=== PATIENT | male | born 1965 | race Caucasian/White ===

== ENCOUNTER 2016-07-21 13:51 | Outpatient (CLI) | payer BC | END 2016-07-21 13:52 | disposition home or self-care (01) | DX: G47.33 Obstructive sleep apnea (adult) (pediatric) (principal) ==

== ENCOUNTER 2016-11-08 19:33 | Outpatient (CLI) | payer BC | END 2016-11-08 19:34 | disposition home or self-care (01) | DX: G47.33 Obstructive sleep apnea (adult) (pediatric) (principal); Z68.38 Body mass index [BMI] 38.0-38.9, adult ==

== ENCOUNTER 2016-11-26 14:04 | Outpatient (CLI) | payer BC | END 2016-11-26 14:05 | disposition home or self-care (01) | LOC: SC 14:04 | PROVIDERS: ATTEND Nurse Practitioner Family | DX: G47.33 Obstructive sleep apnea (adult) (pediatric) (principal) | CPT/HCPCS: 99212; 99214 ==

== ENCOUNTER 2017-01-24 10:48 | Outpatient (CLI) | payer BC ==
[2017-01-24 11:11] LABS: BASOPHILS % (AUTO) 0.6 %; EOSINOPHILS # (AUTO) 0.1 10^3/uL (0.0-0.7); EOSINOPHILS % (AUTO) 2.8 %; HCT - HEMATOCRIT 46.9 % (42.0-52.0); HGB - HEMOGLOBIN 16.1 g/dL (14.0-18.0); LYMPHOCYTES # (AUTO) 2.1 10^3/uL (1.5-3.5); LYMPHOCYTES % (AUTO) 39.5 %; MEAN CORPUSCULAR HEMOGLOBIN 30.5 pg (27.0-31.0); MEAN CORPUSCULAR HGB CONC 34.2 g/dL (32.0-36.0); MEAN CORPUSCULAR VOLUME 89.1 fL (80.0-94.0); MEAN PLATELET VOLUME 8.3 fL (7.4-11.4); MONOCYTES # (AUTO) 0.4 10^3/uL (0.0-1.0); MONOCYTES % (AUTO) 8.2 %; NEUTROPHILS # (AUTO) 2.6 10^3/uL (1.5-6.6); NEUTROPHILS % (AUTO) 48.9 %; RED BLOOD COUNT 5.27 10^6/uL (4.70-6.10); RED CELL DISTRIBUTION WIDTH 13.7 % (12.0-15.0); UNCORRECTED WHITE BLOOD COUNT 5.3 x10^3/uL; WHITE BLOOD COUNT 5.3 x10^3/uL (4.8-10.8)
[2017-01-24 11:27] LABS: ALBUMIN/GLOBULIN RATIO 1.6 (1.0-2.2); BILIRUBIN,TOTAL 2.3 mg/dL (0.2-1.0); BUN - BLOOD UREA NITROGEN 20 mg/dL (6-20); CALCIUM 9.5 mg/dL (8.5-10.3); CARBON DIOXIDE - CO2 26 mmol/L (21-32); CHLORIDE 104 mmol/L (101-111); CHOL/HDL RATIO 5.2 (<5.0); CHOLESTEROL 173 mg/dL; GFR - MDRD 79 (>89); GLUCOSE 124 mg/dL (70-100); HDL CHOLESTEROL 33 mg/dL; HEMOGLOBIN A1C 0.85 g/dL; LDL/HDL RATIO 2.9 (<3.6); SODIUM 138 mmol/L (135-145); TRIGLYCERIDES 217 mg/dL; VLDL CHOLESTEROL 43 mg/dL
== END 2017-01-24 10:49 | disposition home or self-care (01) ==
LOC: LAB 10:48
PROVIDERS: ATTEND Physician Assistant Medical
DX: E78.5 Hyperlipidemia, unspecified (principal)
CPT/HCPCS: 36415; 80053; 80061; 83036; 85025

== ENCOUNTER 2017-01-26 15:38 | Outpatient (CLI) | payer BC | END 2017-01-26 15:39 | disposition home or self-care (01) | LOC: SC 15:38 | PROVIDERS: ATTEND Nurse Practitioner Family | DX: G47.33 Obstructive sleep apnea (adult) (pediatric) (principal) | CPT/HCPCS: 99212; 99214 ==

== ENCOUNTER 2017-05-04 15:48 | Outpatient (CLI) | payer BC | END 2017-05-04 15:49 | disposition home or self-care (01) | LOC: SC 15:48 | PROVIDERS: ATTEND Nurse Practitioner Family | DX: G47.33 Obstructive sleep apnea (adult) (pediatric) (principal) | CPT/HCPCS: 99212; 99214 ==

== ENCOUNTER 2017-06-26 09:48 | Outpatient (CLI) | payer BC ==
[2017-06-26 18:19] LABS: BASOPHILS % (AUTO) 0.4 %; EOSINOPHILS % (AUTO) 2.7 %; HGB - HEMOGLOBIN 16.5 g/dL (14.0-18.0); LYMPHOCYTES % (AUTO) 43.2 %; MEAN CORPUSCULAR HEMOGLOBIN 30.8 pg (27.0-31.0); MEAN CORPUSCULAR HGB CONC 33.5 g/dL (32.0-36.0); MEAN CORPUSCULAR VOLUME 91.9 fL (80.0-94.0); MEAN PLATELET VOLUME 8.7 fL (7.4-11.4); MONOCYTES % (AUTO) 7.4 %; NEUTROPHILS % (AUTO) 46.3 %; PLT - PLATELET COUNT 156 10^3/uL (130-450); RED BLOOD COUNT 5.35 10^6/uL (4.70-6.10); RED CELL DISTRIBUTION WIDTH 13.2 % (12.0-15.0); WHITE BLOOD COUNT 6.2 x10^3/uL (4.8-10.8)
[2017-06-26 18:26] LABS: ABNORMAL LYMPHS % (MANUAL) 0 %
[2017-06-26 18:44] LABS: HB2 TOTAL 17.8 g/dL; HEMOGLOBIN A1C 0.92 g/dL; HEMOGLOBIN A1C % 6.9 % (4.6-6.2)
[2017-06-26 18:49] LABS: ALBUMIN 4.4 g/dL (3.2-5.5); ALBUMIN/GLOBULIN RATIO 1.5 (1.0-2.2); ALKALINE PHOSPHATASE 78 IU/L (42-121); ALT ALANINE AMINOTRANSFERASE 48 IU/L (10-60); AST ASPARTATE AMINOTRANSFERASE 26 IU/L (10-42); BILIRUBIN,TOTAL 0.9 mg/dL (0.2-1.0); BUN - BLOOD UREA NITROGEN 21 mg/dL (6-20); CALCIUM 9.6 mg/dL (8.5-10.3); CARBON DIOXIDE - CO2 28 mmol/L (21-32); CHLORIDE 103 mmol/L (101-111); CHOLESTEROL 156 mg/dL; GFR - MDRD 79 (>89); GLUCOSE 137 mg/dL (70-100); HDL CHOLESTEROL 31 mg/dL; LDL CHOLESTEROL,CALCULATED 93 mg/dL; SODIUM 137 mmol/L (135-145); TOTAL PROTEIN 7.3 g/dL (6.7-8.2); VLDL CHOLESTEROL 32 mg/dL
[2017-06-26 20:33] LABS: BAND NEUTROPHILS % (MANUAL) 1 %; DIFFERENTIAL COMMENT MANUAL DIFFERENTIAL; EOSINOPHILS # (MANUAL) 0.1 10^3/uL (0-0.7); LYMPHOCYTES % (MANUAL) 41 %; MONOCYTES # (MANUAL) 0.2 10^3/uL (0.0-1.0); NEUTROPHILS # (MANUAL) 2.9 10^3/uL (1.5-6.6); NEUTROPHILS % (MANUAL) 46 %; PLATELET ESTIMATE, MANUAL NORMAL (130-450,000) (NORMAL); PLATELET MORPHOLOGY NORMAL APPEARANCE (NORMAL); RBC MORPHOLOGY (MULTIPLE) NORMAL APPEARANCE (NORMAL)
== END 2017-06-26 09:49 | disposition home or self-care (01) ==
LOC: LAB.F 09:48
PROVIDERS: ATTEND Family Medicine
DX: I10 Essential (primary) hypertension (principal); E78.5 Hyperlipidemia, unspecified; E11.9 Type 2 diabetes mellitus without complications
CPT/HCPCS: 36415; 80053; 80061; 83036; 85025

== ENCOUNTER 2017-09-21 01:08 | Emergency (ER) | payer BC ==
--- NOTE | 2017-09-21 02:56 | ED Physician Documentation ---
PD HPI HEENT - Stated complaint Stated Complaint: NOSE BLEED - Chief complaint Chief Complaint: Heent - History obtained from History obtained from: Patient - History of Present Illness Timing - onset: Today Timing - duration: Hours Timing - details: Abrupt onset, Intermittant Pain level max: 0 Pain level now: 0 Location: Nose Improves: Nothing Worsens: No: Swalllowing, Noise, Position, Temperatures, Everything Associated symptoms: Congestion. No: Fever, Rhinorrhea Similar symptoms before: Has not had sx before Recently seen: Not recently seen Review of Systems Constitutional: reports: Reviewed and negative Ears: denies: Ear pain, Drainage/discharge Nose: reports: Congestion, Epistaxis PD PAST MEDICAL HISTORY - Past Medical History Past Medical History: Yes Cardiovascular: Hypertension, High cholesterol Respiratory: Pneumonia Neuro: CVA Endocrine/Autoimmune: Type 2 diabetes GI: None : None HEENT: None Psych: None Musculoskeletal: None Derm: Psoriasis - Past Surgical History Past Surgical History: Yes - Present Medications Home Medications: Ambulatory Orders Medication Instructions Recorded Confirmed Aspirin [Aspir-Low] 81 mg PO DAILY 02/21/16 02/21/16 Atorvastatin Calcium 40 mg PO QPM 02/21/16 02/21/16 Canagliflozin [Invokana] 300 mg PO DAILY 02/21/16 02/21/16 Colchicine 0.6 mg PO TID PRN 02/21/16 02/21/16 Lisinopril 20 mg PO DAILY 02/21/16 02/21/16 - Allergies Allergies/Adverse Reactions: Allergies Allergy/AdvReac Type Severity Reaction Status Date / Time metformin AdvReac Unknown Verified 09/21/17 01:14 - Social History Does the pt smoke?: No Smoking Status: Never smoker Does the pt drink ETOH?: Yes Does the pt have substance abuse?: No - Immunizations Immunizations are current?: Yes - POLST Patient has POLST: No PD ED PE NORMAL - Vitals Vital signs reviewed: Yes - General General: Alert and oriented X 3, No acute distress, Well developed/nourished - HEENT HEENT: PERRL, EOMI, Moist mucous membranes, Pharynx benign PD ED PE EXPANDED - HEENT HEENT: Right nares epsitaxis. No: Left nares epistaxis Results - Vitals Vitals: Oxygen O2 Source Room air Procedures - Epistaxis Site: Right, Anterior Preparation: Clots removed, Afrin, Lidocaine, Clamp / pressure applied Treatment: Silver Nitrate Other: Observed - no bleeding, Pt tolerated well, O2 sat WNL, Referred to ENT PD MEDICAL DECISION MAKING - ED course Complexity details: reviewed results, re-evaluated patient, considered differential, d/w patient Departure - Departure Disposition: 01 Home, Self Care Clinical Impression: Epistaxis Condition: Good Instructions: ED Nosebleed Follow-Up: Christy Joya PA-C [Primary Care Provider] - Discharge Date/Time: 09/21/17 04:25
[2017-09-21] MEDS ORDERED: LIDOCAINE VISCOUS 2% 15 ML UDC MM STA (02:58)
[2017-09-21] MEDS ORDERED: OXYMETAZOLINE NASAL SPRAY NAS STA (02:59)
[2017-09-21 04:24] VITALS: BP 144/98
== END 2017-09-21 04:25 | disposition home or self-care (01) ==
LOC: ED 01:08
DX: R04.0 Epistaxis (principal); I10 Essential (primary) hypertension; E11.9 Type 2 diabetes mellitus without complications; Z86.73 Personal history of transient ischemic attack (TIA), and cerebral infarction without residual deficits; Z79.82 Long term (current) use of aspirin
CPT/HCPCS: 30901; 99283; A9270

== ENCOUNTER 2017-11-16 15:40 | Outpatient (CLI) | payer BC | END 2017-11-16 15:41 | disposition home or self-care (01) | LOC: SC 15:40 | PROVIDERS: ATTEND Nurse Practitioner Family | DX: G47.33 Obstructive sleep apnea (adult) (pediatric) (principal) | CPT/HCPCS: 99212; 99214 ==

== ENCOUNTER 2018-01-18 15:37 | Outpatient (CLI) | payer BC | END 2018-01-18 15:38 | disposition home or self-care (01) | LOC: SC 15:37 | PROVIDERS: ATTEND Nurse Practitioner Family | DX: G47.33 Obstructive sleep apnea (adult) (pediatric) (principal) | CPT/HCPCS: 99212; 99214 ==

== ENCOUNTER 2018-01-18 17:02 | Emergency (ER) | payer BC ==
[2018-01-18 18:52] VITALS: BP 139/78
== END 2018-01-18 19:26 | disposition left against medical advice (07) ==
LOC: ED 17:02
DX: Z53.21 Procedure and treatment not carried out due to patient leaving prior to being seen by health care provider (principal)
CPT/HCPCS: 99282

== ENCOUNTER 2018-05-08 09:16 | Outpatient (CLI) | payer BC ==
[2018-05-08 10:31] LABS: HB2 TOTAL 18.8 g/dL; HEMOGLOBIN A1C 1.16 g/dL; HEMOGLOBIN A1C % 7.8 % (4.6-6.2)
[2018-05-08 10:34] LABS: CREATININE,URINE 106.8 mg/dL
[2018-05-08 10:35] LABS: ALBUMIN 4.4 g/dL (3.2-5.5); ALBUMIN/GLOBULIN RATIO 1.6 (1.0-2.2); ALKALINE PHOSPHATASE 88 IU/L (42-121); ALT ALANINE AMINOTRANSFERASE 70 IU/L (10-60); AST ASPARTATE AMINOTRANSFERASE 34 IU/L (10-42); BILIRUBIN,TOTAL 1.9 mg/dL (0.2-1.0); BUN - BLOOD UREA NITROGEN 16 mg/dL (6-20); CALCIUM 9.2 mg/dL (8.5-10.3); CARBON DIOXIDE - CO2 24 mmol/L (21-32); CHLORIDE 106 mmol/L (101-111); CHOL/HDL RATIO 5.1 (<5.0); CHOLESTEROL 157 mg/dL; CREATININE 1.1 mg/dL (0.6-1.2); GFR - MDRD 71 (>89); GLUCOSE 153 mg/dL (70-100); HDL CHOLESTEROL 31 mg/dL; LDL CHOLESTEROL,CALCULATED 93 mg/dL; SODIUM 138 mmol/L (135-145); TOTAL PROTEIN 7.2 g/dL (6.7-8.2); VLDL CHOLESTEROL 33 mg/dL
[2018-05-08 11:02] LABS: MICROALBUMIN,URINE < 0.3 mg/dL (0-300.0)
== END 2018-05-08 09:17 | disposition home or self-care (01) ==
LOC: LAB 09:16
PROVIDERS: ATTEND Internal Medicine
DX: E11.9 Type 2 diabetes mellitus without complications (principal); E78.5 Hyperlipidemia, unspecified
CPT/HCPCS: 36415; 80053; 80061; 82043; 82570; 83036; 83721

== ENCOUNTER 2018-11-02 11:01 | Outpatient (CLI) | payer BC ==
[2018-11-02 17:36] LABS: CALCIUM 9.3 mg/dL (8.5-10.3); CREATININE 0.9 mg/dL (0.6-1.2)
[2018-11-02 17:52] LABS: HB2 TOTAL 17.1 g/dL; HEMOGLOBIN A1C 0.68 g/dL; HEMOGLOBIN A1C % 5.8 % (4.6-6.2)
== END 2018-11-02 11:02 | disposition home or self-care (01) ==
LOC: LAB.F 11:01
PROVIDERS: ATTEND Internal Medicine
DX: E11.9 Type 2 diabetes mellitus without complications (principal)
CPT/HCPCS: 36415; 80048; 82043; 83036

== ENCOUNTER 2018-12-01 18:28 | Emergency (ER) | payer BC ==
[2018-12-01 18:35] VITALS: BP 147/83
[2018-12-01] MEDS ORDERED: TETANUS/DIPHTHERIA/PERTUSSIS 0.5 ML SYRINGE IM ONE (18:59)
[2018-12-01] MEDS ORDERED: BUFFERED LIDOCAINE 10 ML SYRINGE SUBQ STA (18:59)
--- NOTE | 2018-12-01 19:01 | ED Physician Documentation ---
PD HPI UPPER EXT INJURY - Stated complaint Stated Complaint: RT FINGER LAC - Chief complaint Chief Complaint: Laceration - History obtained from History obtained from: Patient - History of Present Illness Location: Right (This is a 53-year-old gentleman who is left-handed who cut his right index finger with a knife at home just prior to arrival.) Review of Systems Constitutional: reports: Reviewed and negative Nose: reports: Reviewed and negative Throat: reports: Reviewed and negative PD PAST MEDICAL HISTORY - Past Medical History Cardiovascular: Hypertension, High cholesterol Respiratory: Pneumonia Endocrine/Autoimmune: Type 2 diabetes GI: None : None HEENT: None Psych: None Musculoskeletal: None Derm: Psoriasis - Past Surgical History Past Surgical History: Yes - Present Medications Home Medications: Ambulatory Orders Medication Instructions Recorded Confirmed Atorvastatin Calcium 40 mg PO QPM 02/21/16 02/21/16 Canagliflozin [Invokana] 300 mg PO DAILY 02/21/16 02/21/16 Lisinopril 20 mg PO DAILY 02/21/16 02/21/16 Clopidogrel [Plavix] 01/18/18 01/18/18 - Allergies Allergies/Adverse Reactions: Allergies Allergy/AdvReac Type Severity Reaction Status Date / Time metformin AdvReac Unknown Verified 01/18/18 17:12 - Social History Does the pt smoke?: No Smoking Status: Never smoker Does the pt drink ETOH?: Yes Does the pt have substance abuse?: No - Immunizations Immunizations are current?: Yes - POLST Patient has POLST: No PD ED PE NORMAL - Vitals Vital signs reviewed: Yes - General General: Alert and oriented X 3, No acute distress - Extremities Extremities: Other (On the pulp of the right index finger not involving the nailbed there is a 1 curved laceration without distal neurovascular compromise.) - Neuro Neuro: Alert and oriented X 3, Normal speech Results - Vitals Vitals: Vital Signs - 24 hr 12/01/18 18:31 Temperature 36.6 C Heart Rate 84 Respiratory 16 Rate Blood Pressure 147/83 H O2 Saturation 96 Oxygen O2 Source Room air Procedures - Laceration (location) R 2nd finger Length in cm: 1 Wound type: Linear, Curved, Superficial, Into subcut fat Neurovascular status: Sensory intact, Motor intact, Vascular intact Anesthesia: Lidocaine 1%, With bicarb Wound Preparation: Irrigated copiously NS Skin layer closure: Nylon, Interrupted, Size #-0 - enter number (5-0), Sutures - enter # (3) Other: Tetanus booster given Complexity: Simple Departure - Departure Disposition: 01 Home, Self Care Clinical Impression: Laceration Condition: Good Record reviewed to determine appropriate education?: Yes Instructions: ED Laceration Hand Comments: Come back for any signs of infection which would include: Redness, swelling, drainage, increased pain, or fevers. You can wash it soap and water. Keep it covered and moist with bacitracin ointment which is available over the counter; avoid neosporin. Follow-up with your physician in 14 days for suture removal.
== END 2018-12-01 19:28 | disposition home or self-care (01) ==
LOC: ED 18:28
DX: S61.210A Laceration without foreign body of right index finger without damage to nail, initial encounter (principal); W26.0XXA Contact with knife, initial encounter; Y93.89 Activity, other specified; Y92.009 Unspecified place in unspecified non-institutional (private) residence as the place of occurrence of the external cause; I10 Essential (primary) hypertension; E11.9 Type 2 diabetes mellitus without complications; Z79.01 Long term (current) use of anticoagulants
CPT/HCPCS: 12001; 90471; 99282; 99283

== ENCOUNTER 2019-05-21 09:24 | Outpatient (CLI) | payer BC ==
[2019-05-21 10:10] LABS: ALBUMIN 4.7 g/dL (3.2-5.5); ALBUMIN/GLOBULIN RATIO 1.8 (1.0-2.2); ALKALINE PHOSPHATASE 61 IU/L (42-121); ALT ALANINE AMINOTRANSFERASE 72 IU/L (10-60); AST ASPARTATE AMINOTRANSFERASE 37 IU/L (10-42); BILIRUBIN,TOTAL 1.8 mg/dL (0.2-1.0); BUN - BLOOD UREA NITROGEN 23 mg/dL (6-20); CALCIUM 9.3 mg/dL (8.5-10.3); CARBON DIOXIDE - CO2 26 mmol/L (21-32); CHLORIDE 105 mmol/L (101-111); CHOL/HDL RATIO 5.4 (<5.0); CHOLESTEROL 184 mg/dL; CREATININE 1.1 mg/dL (0.6-1.2); GFR - MDRD 70 (>89); GLUCOSE 128 mg/dL (70-100); HDL CHOLESTEROL 34 mg/dL; LDL CHOLESTEROL,CALCULATED 102 mg/dL; SODIUM 141 mmol/L (135-145); TOTAL PROTEIN 7.3 g/dL (6.7-8.2); VLDL CHOLESTEROL 48 mg/dL
[2019-05-21 10:18] LABS: HB2 TOTAL 17.6 g/dL; HEMOGLOBIN A1C 1.11 g/dL; HEMOGLOBIN A1C % 7.9 % (4.6-6.2)
== END 2019-05-21 09:25 | disposition home or self-care (01) ==
LOC: LAB 09:24
PROVIDERS: ATTEND Internal Medicine
DX: E78.5 Hyperlipidemia, unspecified (principal); E11.9 Type 2 diabetes mellitus without complications
CPT/HCPCS: 36415; 80053; 80061; 83036; 83721

== ENCOUNTER 2019-08-15 15:59 | Outpatient (CLI) | payer BC ==
[2019-08-15 17:00] VITALS: BP 120/80
--- NOTE | 2019-08-15 17:00 | SLEEP CARE CONSULTATION ---
Information from patient questionnaire entered by Hawa Boston. I have reviewed and concur with the information entered by Hawa Boston. This document represents the service I personally performed and the decisions made by me, Barbra Lee, RN, MSN, BITE [employer]. History of Present Illness Previous diagnosis: Very Severe, Obstructive Sleep Apnea-Hypopnea Syndrome AHI: 61.5 Reason for follow up: three month (and pressure change) Equipment type: CPAP Equipment obtained from: [facility] (having problems getting supplies despite repeated attempts) Mask style: Nasal (Air Fit) Mask brand: Resmed Backup mask available: Yes Last cushion change: 2 months ago Prior sleep studies: Yes HPI additional information: The lower CPAP pressure and adjustment of heated hose assisted comfort of CPAP use. CPAP Compliance Data - Data Reviewed with Patient Average duration of nightly device use: 5h 8m Compliance rate %: 87.8 Current pressure setting (cmH2O): 12 Humidity settin Heated hose settin Average residual AHI: 0.6 Average large leak: 22s Subjective Missed days of use due to: reports: illness (with cold ), other (power outage ) Patient concerns: reports: mask leak noise (rarely ). denies: aerophagia, mask discomfort, air blowing in eyes, condensation in mask/hose, nasal congestion, dry mouth, nose, throat, epistaxis Observed to snore while using device: No Current pressure setting perceived as: comfortable On therapy, patient: reports: sleeping better, awakening more refreshed, being more awake and alert during the day, more rested overall. denies: drowsiness while driving Initial [place] Sleepiness Scale score: 10 Current [place] Sleepiness Scale score: 7 Allergies and Home Medications Known drug allergies: Yes (metformin ) Home medication list reviewed: Yes Allergy and home medication list: Medication Name (generic/name brand) Strength & Dosage Invokana 300mg tab one daily Lisinopril 40mg tab one daily Clopidogrel Bisulfate (Plavix) 75mg tab one daily Atorvastatin Calcium 80mg tab one daily at bedtime Review of Systems Review of systems same as previous: Yes Physical Exam Blood Pressure: 120/80 Cuff size: long Heart Rate: 71 O2 Saturation: 98 Height: 5 ft 9 in Weight: 256 lb Weight change since last visit: lost 2.4 pounds Body Mass Index: 37.8 BMI Classification: Obese Impression and Plan 1. Obstructive Sleep Apnea-Hypopnea Syndrome, very severe, with good treatment compliance and good apnea control. On CPAP therapy, the patient has better sleep quality and is more rested overall with lower pressure and higher humidity. For patient supply concerns. Patient was notified that another DME can be used. At this time, he will work with current DME. Patient advised to contact this office if further supply problems and a DWO can be made if needed for transfers. Questions about supplies and replacement were answered again. In addition, I gave patient a copy of the CPAP supply replacement schedule and discussed rationale for updating equipment. He is advised to increase total sleep time to at least 6 hours to reduce risk of health risks associated with insufficient sleep. Patient's apnea severity and rationale for treatment to reduce apnea, improve sleep quality and reduce cardiovascular and cerebrovascular events was reviewed. I also reviewed the benefit of consistent device use of CPAP for hypertension and cerebrascular disease. * Continue CPAP pressure at 10-12 cmH2O * obtain more sleep * Notify me if snoring with mask or feeling that the pressure is too much or too little * Attempt to lose weight * Call this office if any problems using CPAP * Return for follow up in 1 year , or sooner if concerns arise . Time Spent with Patient (minutes): 22 I spent 100% of this visit face to face with the patient with greater than 50% of this was spent time counseling the patient and coordination of care.
== END 2019-08-15 16:00 | disposition home or self-care (01) ==
LOC: SC 15:59
PROVIDERS: ATTEND Nurse Practitioner Family
DX: G47.33 Obstructive sleep apnea (adult) (pediatric) (principal); E66.9 Obesity, unspecified; Z68.37 Body mass index [BMI] 37.0-37.9, adult
CPT/HCPCS: 99212; 99213

== ENCOUNTER 2020-10-02 07:25 | Day surgery (SDC) | payer BC ==
[2020-10-02] MEDS ORDERED: LACTATED RINGERS 1,000 ML IV ONE ×2 (07:27→09:14)
--- NOTE | 2020-10-02 08:06 | ANESTHESIA ---
Pre-Anesthesia VS, & Labs - Diagnosis Family history of colon cancer, high risk for colon cancer - Procedure colonoscopy Height: 5 ft 9 in Weight (kg): 112.4 kg Body Mass Index: 36.6 BMI Classification: Obese - NPO >8 hours - Lab Results Current Lab Results: Laboratory Tests 10/02/20 07:45: POC Whole Bld Glucose 142 H Home Medications and Allergies Atorvastatin Calcium 40 mg PO QPM 02/21/16 Canagliflozin [Invokana] 300 mg PO DAILY 02/21/16 Lisinopril 20 mg PO DAILY 02/21/16 Clopidogrel [Plavix] 1 tab ORAL DAILY 01/18/18 Allergies/Adverse Reactions: Allergies Allergy/AdvReac Type Severity Reaction Status Date / Time metformin AdvReac Unknown Verified 01/18/18 17:12 Anes History & Medical History - Anesthetic History Anesthesia Complications: reports: No previous complications - Medical History Cardiovascular: reports: Hypertension, High cholesterol Pulmonary: reports: Sleep apnea, CPAP use Gastrointestinal: reports: None Urinary: reports: None Neuro: reports: CVA Musculoskeletal: reports: None Endocrine/Autoimmune: reports: Type 2 diabetes Blood Disorders: reports: None Skin: reports: Psoriasis Smoking Status: Former smoker (Quit 10 years ago) Psychosocial: reports: No issues indicated, Alcohol (2-3 drinks per night) History of Cancer?: No - Surgical History General: reports: Colonoscopy Eyes Ears Nose Throat (EENT): reports: Tonsil/Adenoidectomy Orthopedic: reports: Other (right wrist) Exam General: Alert, Oriented x3, Cooperative, No acute distress Dental: WNL Mouth Openin Fingerbreadth Neck Mobility: Normal Mallampati classification: II Thyromental Distance: greater than 6 cm Mental/Cognitive Status: Alert/Oriented X3, Normal for patient Plan Anesthesia Type: MAC Consent for Procedure(s) Verified and Reviewed: Yes Code Status: Attempt Resuscitation ASA classification: 3-Severe systemic disease Is this case an emergency?: No
[2020-10-02] MEDS ORDERED: PROPOFOL 500 MG/50 ML 500 MG/50 ML VIAL ONE (08:16)
[2020-10-02] MEDS ORDERED: MIDAZOLAM 2 MG/2 ML VIAL ONE (08:34)
[2020-10-02] MEDS ORDERED: fentaNYL 100 MCG/2 ML VIAL ONE (08:34)
[2020-10-02 09:28] VITALS: BP 117/88
--- NOTE | 2020-10-02 09:56 | ANESTHESIA POST OP EVALUATION ---
Anesthesia Post Eval - Post Anesthesia Eval Vitals: Last Vital Signs Temp 36.2 C L 10/02/20 09:14 Pulse 64 10/02/20 09:28 Resp 17 10/02/20 09:28 BP 117/88 H 10/02/20 09:28 Pulse Ox 98 10/02/20 09:28 CV Function Including HR & BP: Stable Pain Control: Satisfactory Nausea & Vomiting: Negative Mental Status: Baseline Respiratory Status: Airway Patent Hydration Status: Satisfactory Anesthesia Complications: None
--- OUTSIDE RECORDS SUMMARY | 2020-10-03 03:19 | EXTERNAL MEDICAL SUMMARY RPT | Continuity of Care Document ---
:1965 Demographics Phone Unavailable Preferred Language Unknown Marital Status Unknown Sabianism Affiliation Unknown Race Unknown Ethnic Group Unknown Author Organization [place] Address [address] [phone] Phone Care Team Providers Name Role Phone PA-C Unavailable Unavailable PA-C Unavailable Unavailable Problems date description facility 20200815 CBC W/Diff/Plt [facility] C barbie [id number] Details of drug misuse behavior [facility] 20200815 Encounter for screening for malignant [facility] & neoplasm of colon [facility] 20200815 HGBA1C [facility] 20200815 Little interest or pleasure in doing W alk[facility] & things? Ancillary Services [facility] valentin 20200815 MICROALBUMIN/CREAT RATIO [facility] Services [facility] valentin 20200815 Alcohol use [facility] 20200815 COMPREHENSIVE METABOLIC PANEL [facility] 20200815 Feeling down, depressed, or hopeless? [facility] 20200815 Former smoker [facility] 20200815 LIPIDS SCREEN [facility] 20200815 Patient Health Questionnaire 2 item [facility] & (PHQ2) total score Ancillary Services [facility] avlentin [id number] Screening for malignant neoplasm of [facility] & colon [facility] val[facility] 20200815 Screening for malignant neoplasms of [facility] & colon [facility] val[facility] 20200815 TSH WITH REFLEX TO FT4 [facility] 20200824 Alcohol intake [facility] 20200824 Alcohol use [facility] 20200824 Details of drug misuse behavior [facility] 20200824 Exercise [facility] valentin 20200824 Former smoker [facility] Care & Ancillary Services [facility] 20200824 Health-related behavior Walk[facility]In [facility] Primary Care & Ancillary Services [facility] 20200824 Tobacco smoking status NHIS Walk[facility]In [facility] Primary Care & Ancillary Services [facility] 20200824 Tobacco use and exposure [facility] [phone] Alcohol intake [facility] [id number] Alcohol use [facility] Care & Anc[facility] Services [facility] [phone] Details of drug misuse behavior [facility] Primary Care & Ancillary Services [facility] [id number] Former smoker [facility] Care & Ancillary Services [facility] [id number] Tobacco smoking status NHIS [facility] Primary Care & Ancillary Services [facility] [id number] Tobacco use and exposure [facility] Medications date description facility [id number] BLOOD GLUCOSE MONITORING SUPPL Walk[facility] Primary Care & Ancillary Services [place] [id number] BLOOD GLUCOSE MONITORING SUPPL Walk-[facility] Primary Care & Ancillary Services [place] 20200824 NA SULFATE-K SULFATE-MG SULF Walk-In [facility] Primary Care & Ancillary Services [place] [phone] NA SULFATE-K SULFATE-MG SULF Walk[facility] Primary Care & Ancillary Services [place] Vital Signs date measurement value source [id number] BMI 37.14 kg/m2 95602135 BP_diastolic 77 mm[Hg] 86722598 BP_systolic 124 mm[Hg] 68094194 heart_rate 78 /min 30721890 height_metric 175.26 cm 34884783 height_standard 69 in 95986625 respiration_rate 16 /min 53133580 temperature_metric 36.28 C 80593935 temperature_standard 97.3 F [id number] weight_metric 114.08 kg 39875001 weight_standard 251.5 lb 29800358 heart_rate 78 /min 94762020 respiration_rate 16 /min 41875312 temperature_metric 36.28 C 18462698 temperature_standard 97.3 F date measurement value source 20200824 BMI 37.05 kg/m2 86611297 BP_diastolic 93 mm[Hg] 59822508 BP_systolic 138 mm[Hg] 20200824 height_metric 175.26 cm 20200824 height_standard 69 in 20200824 weight_metric 113.4 kg 20200824 weight_standard 250 lb Social History date description facility [id number]
== END 2020-10-02 07:26 | disposition home or self-care (01) ==
LOC: SDS 07:25
PROVIDERS: ATTEND Surgery
PROC: 0DBL8ZZ Excision of Transverse Colon, Via Natural or Artificial Opening Endoscopic (ICD-10-PCS; 2020-10-02)
PROC: 0DBK8ZZ Excision of Ascending Colon, Via Natural or Artificial Opening Endoscopic (ICD-10-PCS; principal; 2020-10-02 08:30)
DX: Z12.11 Encounter for screening for malignant neoplasm of colon (principal); D12.2 Benign neoplasm of ascending colon; D12.3 Benign neoplasm of transverse colon; K64.8 Other hemorrhoids; K57.30 Diverticulosis of large intestine without perforation or abscess without bleeding; I10 Essential (primary) hypertension; E11.9 Type 2 diabetes mellitus without complications; G47.33 Obstructive sleep apnea (adult) (pediatric); Z79.84 Long term (current) use of oral hypoglycemic drugs; I67.9 Cerebrovascular disease, unspecified; Z79.02 Long term (current) use of antithrombotics/antiplatelets; Z86.73 Personal history of transient ischemic attack (TIA), and cerebral infarction without residual deficits; Z87.891 Personal history of nicotine dependence; Z80.0 Family history of malignant neoplasm of digestive organs; E66.9 Obesity, unspecified; Z68.36 Body mass index [BMI] 36.0-36.9, adult
CPT/HCPCS: 45385; J7120; 88305

== ENCOUNTER 2020-10-09 07:24 | Emergency (ER) | payer BC ==
--- OUTSIDE RECORDS SUMMARY | 2020-10-09 07:27 | EXTERNAL MEDICAL SUMMARY RPT | Continuity of Care Document ---
:1965 Demographics Phone Unavailable Preferred Language Unknown Marital Status Unknown Moravian Affiliation Unknown Race Unknown Ethnic Group Unknown Author Organization [place] Address [address] [phone] Phone Care Team Providers Name Role Phone [...] & (PHQ2) total score Ancillary Services [facility] valentin [phone] Screening for malignant neoplasm of Wa lk-In [...] [facility] valentin 20200824 Former smoker [facility] Care & Ancillary Services [facility] 20200824 Health-related behavior Walk[facility]In [facility] Primary Care & Ancillary Services [facility] 20200824 Tobacco smoking status NHIS Walk[facility]In [facility] Primary Care & Ancillary Services [facility] 20200824 Tobacco use and exposure [facility] Services [facility] [id number] Alcohol intake [facility] [phone] Alcohol use [facility] Care & Ancillary Services [facility] [id number] Details of drug misuse behavior Walk[facility] Primary Care & Ancillary Services [facility] [phone] Former smoker [facility] Care & Ancillary Services [facility] [phone] Tobacco smoking status NHIS Walk[facility] Primary Care & Ancillary Services [facility] [id number] Tobacco use and exposure [facility] Primary Care & Ancillary Services [facility] Medications date description facility [id number] BLOOD GLUCOSE MONITORING SUPPL Walk[facility]In [facility] Primary Care & Ancillary Services [place] [id number] BLOOD GLUCOSE MONITORING SUPPL Walk-In [facility] Primary Care & [facility] Services [place] 20200824 NA SULFATE-K SULFATE-MG SULF Walk-In [facility] Primary Care & Ancillary Services [place] [phone] NA SULFATE-K SULFATE-MG SULF Walk[facility]In [facility] Primary Care & Ancillary Services [place] Vital Signs date measurement value source [id number] BMI 37.14 kg/m2 83014420 BP_diastolic 77 mm[Hg] 28806256 BP_systolic 124 mm[Hg] 03479095 heart_rate 78 /min 95972393 height_metric 175.26 cm 45969153 height_standard 69 in 29875048 respiration_rate 16 /min 66039255 temperature_metric 36.28 C 36716727 temperature_standard 97.3 F 42524404 weight_metric 114.08 kg 51425340 weight_standard 251.5 lb 04465764 heart_rate 78 /min 01560761 respiration_rate 16 /min 55206913 temperature_metric 36.28 C 79360800 temperature_standard 97.3 F date measurement value source 20200824 BMI 37.05 kg/m2 31864266 BP_diastolic 93 mm[Hg] 17238929 BP_systolic 138 mm[Hg] 20200824 height_metric 175.26 cm 20200824 height_standard 69 in 20200824 weight_metric 113.4 kg 20200824 weight_standard 250 lb Social History date description facility [id number]
--- NOTE | 2020-10-09 07:37 | ED Physician Documentation ---
PD HPI GI BLEED - Stated complaint Stated Complaint: BLOOD IN STOOL - Chief complaint Chief Complaint: Abd Pain - History obtained from History obtained from: Patient - History of Present Illness Timing - onset: Today, Last night Timing - details: Gradual onset (onset of some lower abd cramping pains and dark blood with clots out per rectum. An episode last evening, and felt he was going to call surgeon today, but had 4-5 more BMs of dark clots overnight, so here for eval.), Intermittant Associated symptoms: Maroon stool (with clots.) Contributing factors: Anticoagulated (plavix.), Other (colonscopy wtih biopsies 6 days ago.). No: Bad food, Recent antibiotics, NSAID use Similar symptoms before: Has not had sx before Recently seen: Surgery (had screening colonscopy 6 days ago without problems.) Review of Systems Constitutional: denies: Fever, Chills Nose: denies: Rhinorrhea / runny nose, Congestion Throat: denies: Sore throat Respiratory: denies: Cough GI: reports: Abdominal Pain (cramping lower), Bloody / black stool. denies: Abdominal Swelling, Nausea, Vomiting Neurologic: denies: Generalized weakness, Difficulty speaking, Near syncope PD PAST MEDICAL HISTORY - Past Medical History Cardiovascular: Hypertension, High cholesterol Respiratory: Sleep apnea, CPAP use Neuro: CVA Endocrine/Autoimmune: Type 2 diabetes GI: None : None HEENT: None Psych: None Musculoskeletal: None Derm: Psoriasis - Past Surgical History Past Surgical History: Yes General: Colonoscopy Ortho: Other (right wrist) HEENT: Tonsil/Adenoidectomy - Present Medications Home Medications: Ambulatory Orders Medication Instructions Recorded Confirmed Atorvastatin Calcium 80 mg PO QPM 02/21/16 10/09/20 Canagliflozin [Invokana] 300 mg PO DAILY 02/21/16 10/09/20 Lisinopril 40 mg PO DAILY 02/21/16 10/09/20 Clopidogrel [Plavix] 75 mg ORAL DAILY 01/18/18 10/09/20 - Allergies Allergies/Adverse Reactions: Allergies Allergy/AdvReac Type Severity Reaction Status Date / Time metformin AdvReac Unknown Verified 10/09/20 07:32 - Social History Does the pt smoke?: No Smoking Status: Former smoker (Quit 10 years ago) Does the pt drink ETOH?: Yes Does the pt have substance abuse?: No - Immunizations Immunizations are current?: Yes - POLST Patient has POLST: No PD ED PE NORMAL - Vitals Vital signs reviewed: Yes - General General: Alert and oriented X 3, No acute distress, Well developed/nourished - HEENT HEENT: Pharynx benign - Neck Neck: Supple, no meningeal sign, No adenopathy - Cardiac Cardiac: RRR, No murmur - Respiratory Respiratory: Clear bilaterally - Abdomen Abdomen: Normal bowel sounds, Soft, Non tender, Non distended - Rectal Rectal: Deferred (he had small BM in ER of purple clots without stool. ) - Derm Derm: Normal color, Warm and dry - Extremities Extremities: No edema, No calf tenderness / cord Results - Vitals Vitals: Vital Signs - 24 hr 10/09/20 10/09/20 10/09/20 07:32 07:53 10:02 Temperature 36 C L 36.7 C Heart Rate 79 70 66 Respiratory 18 16 16 Rate Blood Pressure 163/95 H 122/102 H 133/84 H O2 Saturation 97 96 96 Oxygen O2 Source Room air - Labs Labs: Laboratory Tests 10/09/20 10/09/20 10/09/20 08:10 08:10 08:10 WBC 5.0 RBC 4.83 Hgb 15.2 Hct 44.1 MCV 91.3 MCH 31.5 H MCHC 34.5 RDW 12.6 Plt Count 146 MPV 9.9 Neut # (Auto) 2.7 Lymph # (Auto) 1.8 Wake # (Auto) 0.4 Eos # (Auto) 0.2 Baso # (Auto) 0.0 Absolute Nucleated RBC 0.00 Nucleated RBC % 0.0 PT 11.7 INR 1.0 APTT 32.4 Sodium 137 Potassium 3.9 Chloride 103 Carbon Dioxide 25 Anion Gap 9.0 BUN 23 H Creatinine 0.9 Estimated GFR (MDRD) 88 L Glucose 168 H Calcium 9.5 Total Bilirubin 1.0 AST 20 ALT 37 Alkaline Phosphatase 75 Total Protein 7.1 Albumin 4.2 Globulin 2.9 Albumin/Globulin Ratio 1.4 Lipase 29 Blood Type Blood Type Recheck Antibody Screen 10/09/20 10/09/20 08:10 08:30 WBC RBC Hgb Hct MCV MCH MCHC RDW Plt Count MPV Neut # (Auto) Lymph # (Auto) Wake # (Auto) Eos # (Auto) Baso # (Auto) Absolute Nucleated RBC Nucleated RBC % PT INR APTT Sodium Potassium Chloride Carbon Dioxide Anion Gap BUN Creatinine Estimated GFR (MDRD) Glucose Calcium Total Bilirubin AST ALT Alkaline Phosphatase Total Protein Albumin Globulin Albumin/Globulin Ratio Lipase Blood Type O POSITIVE Blood Type Recheck O POSITIVE Antibody Screen NEGATIVE PD MEDICAL DECISION MAKING - ED course Complexity details: reviewed results (blood count and vitals are good. Seems stable and also seems the amount of bleeding has slowed.), re-evaluated patient (feeling okay and he is comfortable heading home, to follow up with Surgery office tomorrow. Clinically is not concerning for perforation during scope.), considered differential (likely falling off of wet clot from biopsy site, and having the noted bleeding. Presume it will stop through the day today, but has buffer room with regard to Hgb and BP. ), d/w patient, d/w solar consultant (Dr. Gamez, composition instructor for surgery, who felt pt stable for close follow up in office in next 1-2 days. ) Departure - Departure Disposition: 01 Home, Self Care Clinical Impression: Hematochezia, Status post colonoscopy with polypectomy Condition: Stable Record reviewed to determine appropriate education?: Yes Instructions: ED Hematochezia Stable Follow-Up: Milton Resendiz MD [Primary Care Provider] - Comments: Hydrated. Clear liquids and soft food diet for 1 to 2 days until this resolves. This is in case you would subsequently need a repeat scope. Hold your Plavix for 3 days. Return if worsening/significant bleeding, increased pains, lightheadedness, other concerns. Otherwise contact the surgery office tomorrow to update them on how you are doing and the degree of bleeding. Most likely this will be resolved by later today or tomorrow. This most likely was a clot at the polyp ectomy site coming loose with brief self-limited bleeding most of the time. Discharge Date/Time: 10/09/20 10:03
--- OUTSIDE RECORDS SUMMARY | 2020-10-09 07:46 | EXTERNAL MEDICAL SUMMARY RPT | Continuity of Care Document ---
:1965 Demographics Phone Unavailable Preferred Language Unknown Marital Status Unknown Adventism Affiliation Unknown Race Unknown Ethnic Group Unknown Author Organization [facility] Address [address] [phone] Phone Care Team Providers Name Role Phone Shemar BRAND, Unavailable Unavailable SUNDAY, Elisha Ayon, Unavailable Unavailable Problems date description facility [id number] [...] [facility] C barbie [id number] Feeling down, depressed, or hopeless? [facility] Chiara valentin [id number] Former smoker [facility] Chiara valentin [id number] LIPIDS SCREEN [facility] Services Chiara valentin [id number] Patient Health Questionnaire 2 item [facility] & (PHQ2) total score Ancillary Services Chiara valentin [id number] Screening for malignant neoplasm of [facility] colon [facility] Services Chiara valentin [id number] Screening for malignant neoplasms of [facility] & colon Ancillary Services Chiara valentin 20200815 TSH WITH REFLEX TO FT4 [facility] Chiara valentin 20200824 Alcohol intake [facility] C barbie 20200824 Alcohol use [facility] Chiara valentin 20200824 Details of drug misuse behavior [facility] Chiara valentin 20200824 Exercise [facility] & Anc[facility] Services [facility] 20200824 Former smoker [facility] Care & Ancillary Services [facility] 20200824 Health-related behavior [facility] Primary Care & Ancillary Services [facility] 20200824 Tobacco smoking status NHIS [facility] Primary Care & Ancillary Services [facility] 20200824 Tobacco use and exposure [facility] [id number] Alcohol intake [facility] Care & Ancillary Services [facility] [id number] Alcohol use [facility] Care & Ancillary Services [facility] [phone] Details of drug misuse behavior [facility] Primary Care & Ancillary Services [facility] [phone] Former smoker [facility] & Ancillary Services [facility] [id number] Tobacco smoking status [facility]In [facility] Primary Care & Ancillary Services [facility] [phone] Tobacco use and exposure [facility] Primary Care & Ancillary Services [facility] Medications date description facility [id number] BLOOD GLUCOSE MONITORING SUPPL [facility] Primary Care & Ancillary Services [place] [id number] BLOOD GLUCOSE MONITORING SUPPL Walk-In [facility] Primary Care & Ancillary Services [place] [phone] NA SULFATE-K SULFATE-MG SULF Walk-In [facility] Primary Care & Ancillary Services [place] [phone] NA SULFATE-K SULFATE-MG SULF [facility] Primary Care & Ancillary Services [place] Vital Signs date measurement value source 20200815 BMI 37.14 kg/m2 [id number] BP_diastolic 77 mm[Hg] 45492213 BP_systolic 124 mm[Hg] 88941513 heart_rate 78 /min 32491624 height_metric 175.26 cm 31670609 height_standard 69 in 08386638 respiration_rate 16 /min [id number] temperature_metric 36.28 C 02808892 temperature_standard 97.3 F 20200815 weight_metric 114.08 kg 19266815 weight_standard 251.5 lb 58332212 heart_rate 78 /min 74240613 respiration_rate 16 /min 15988231 temperature_metric 36.28 C 63310959 temperature_standard 97.3 F date measurement value source 20200824 BMI 37.05 kg/m2 18405350 BP_diastolic 93 mm[Hg] 16421789 BP_systolic 138 mm[Hg] 20200824 height_metric 175.26 cm 20200824 height_standard 69 in 20200824 weight_metric 113.4 kg 20200824 weight_standard 250 lb Social History date description facility [id number]
[2020-10-09] MEDS ORDERED: FAMOTIDINE 20 MG/2 ML VIAL IVP STA (08:08)
[2020-10-09 08:19] LABS: BASOPHILS % (AUTO) 0.6 %; EOSINOPHILS # (AUTO) 0.2 10^3/uL (0.0-0.7); EOSINOPHILS % (AUTO) 3.2 %; HCT - HEMATOCRIT 44.1 % (42.0-52.0); HGB - HEMOGLOBIN 15.2 g/dL (14.0-18.0); LYMPHOCYTES # (AUTO) 1.8 10^3/uL (1.5-3.5); MEAN CORPUSCULAR HEMOGLOBIN 31.5 pg (27.0-31.0); MEAN CORPUSCULAR HGB CONC 34.5 g/dL (32.0-36.0); MEAN CORPUSCULAR VOLUME 91.3 fL (80.0-94.0); MEAN PLATELET VOLUME 9.9 fL (7.4-11.4); MONOCYTES # (AUTO) 0.4 10^3/uL (0.0-1.0); MONOCYTES % (AUTO) 7.4 %; NEUTROPHILS # (AUTO) 2.7 10^3/uL (1.5-6.6); NEUTROPHILS % (AUTO) 53.6 %; PLT - PLATELET COUNT 146 10^3/uL (130-450); RED BLOOD COUNT 4.83 10^6/uL (4.70-6.10); RED CELL DISTRIBUTION WIDTH 12.6 % (12.0-15.0)
[2020-10-09 08:27] LABS: PT - PROTHROMBIN TIME 11.7 secs (9.9-12.6)
[2020-10-09 08:34] LABS: ALBUMIN 4.2 g/dL (3.2-5.5); ALBUMIN/GLOBULIN RATIO 1.4 (1.0-2.2); CALCIUM 9.5 mg/dL (8.5-10.3); CREATININE 0.9 mg/dL (0.6-1.2); POTASSIUM 3.9 mmol/L (3.5-5.0); TOTAL PROTEIN 7.1 g/dL (6.7-8.2)
[2020-10-09 08:35] LABS: PARTIAL THROMBOPLASTIN TIME 32.4 secs (24.9-33.3)
[2020-10-09 10:03] VITALS: BP 133/84
== END 2020-10-09 10:03 | disposition home or self-care (01) ==
LOC: ED 07:24
DX: K92.1 Melena (principal); Z98.890 Other specified postprocedural states; Z86.010 Personal history of colon polyps; Z79.02 Long term (current) use of antithrombotics/antiplatelets; Z86.73 Personal history of transient ischemic attack (TIA), and cerebral infarction without residual deficits; I10 Essential (primary) hypertension; E11.9 Type 2 diabetes mellitus without complications; Z79.84 Long term (current) use of oral hypoglycemic drugs; Z87.891 Personal history of nicotine dependence
CPT/HCPCS: 36415; 80053; 83690; 85025; 85610; 85730; 86850; 86900; 86901; 96374; 99284

== ENCOUNTER 2020-10-20 09:21 | Outpatient (CLI) | payer BC ==
[2020-10-20 15:42] LABS: BASOPHILS % (AUTO) 0.6 %; EOSINOPHILS # (AUTO) 0.2 10^3/uL (0.0-0.7); EOSINOPHILS % (AUTO) 3.8 %; HCT - HEMATOCRIT 44.1 % (42.0-52.0); HGB - HEMOGLOBIN 14.8 g/dL (14.0-18.0); LYMPHOCYTES % (AUTO) 42.5 %; MEAN CORPUSCULAR HEMOGLOBIN 31.6 pg (27.0-31.0); MEAN CORPUSCULAR HGB CONC 33.6 g/dL (32.0-36.0); MEAN PLATELET VOLUME 9.9 fL (7.4-11.4); MONOCYTES # (AUTO) 0.4 10^3/uL (0.0-1.0); MONOCYTES % (AUTO) 8.7 %; NEUTROPHILS # (AUTO) 2.1 10^3/uL (1.5-6.6); NEUTROPHILS % (AUTO) 44.2 %; PLT - PLATELET COUNT 194 10^3/uL (130-450); RED BLOOD COUNT 4.69 10^6/uL (4.70-6.10); RED CELL DISTRIBUTION WIDTH 13.4 % (12.0-15.0); WHITE BLOOD COUNT 4.7 x10^3/uL (4.8-10.8)
[2020-10-20 16:04] LABS: ALBUMIN 4.1 g/dL (3.2-5.5); ALBUMIN/GLOBULIN RATIO 1.4 (1.0-2.2); ALKALINE PHOSPHATASE 74 IU/L (42-121); ALT ALANINE AMINOTRANSFERASE 36 IU/L (10-60); AST ASPARTATE AMINOTRANSFERASE 24 IU/L (10-42); BILIRUBIN,TOTAL 1.5 mg/dL (0.2-1.0); BUN - BLOOD UREA NITROGEN 17 mg/dL (6-20); CALCIUM 9.3 mg/dL (8.5-10.3); CARBON DIOXIDE - CO2 26 mmol/L (21-32); CHLORIDE 103 mmol/L (101-111); CHOL/HDL RATIO 5.3 (<5.0); CHOLESTEROL 159 mg/dL; CREATININE 0.9 mg/dL (0.6-1.2); GFR - MDRD 88 (>89); GLUCOSE 159 mg/dL (70-100); HDL CHOLESTEROL 30 mg/dL; LDL CHOLESTEROL,CALCULATED 103 mg/dL; LDL/HDL RATIO 3.4 (<3.6); POTASSIUM 3.9 mmol/L (3.5-5.0); SODIUM 138 mmol/L (135-145); TOTAL PROTEIN 7.1 g/dL (6.7-8.2); TRIGLYCERIDES 132 mg/dL; VLDL CHOLESTEROL 26 mg/dL
[2020-10-20 16:14] LABS: CREATININE,URINE 90.7 mg/dL
[2020-10-20 16:16] LABS: THYROID STIMULATING HORMONE 2.16 uIU/mL (0.34-5.60)
[2020-10-20 16:25] LABS: MICROALBUMIN,URINE < 0.2 mg/dL (0-300.0)
[2020-10-20 21:42] LABS: ESTIMATED AVERAGE GLUCOSE 177 mg/dL (70-100); HEMOGLOBIN A1c% 7.8 % (4.27-6.07)
== END 2020-10-20 09:22 | disposition home or self-care (01) ==
LOC: LAB.S 09:21
PROVIDERS: ATTEND Surgery
DX: Z00.00 Encounter for general adult medical examination without abnormal findings (principal); E11.9 Type 2 diabetes mellitus without complications; K92.1 Melena; I10 Essential (primary) hypertension; E78.5 Hyperlipidemia, unspecified; G47.33 Obstructive sleep apnea (adult) (pediatric)
CPT/HCPCS: 36415; 80053; 80061; 82043; 82570; 83036; 83721; 84443; 85025

== ENCOUNTER 2021-01-08 08:00 | Outpatient (CLI) | payer BC | END 2021-01-08 08:01 | disposition home or self-care (01) | LOC: LAB.S 08:00 | PROVIDERS: ATTEND Emergency Medicine | DX: L03.90 Cellulitis, unspecified (principal) | CPT/HCPCS: 87070; 87077; 87181; 87205 ==

== ENCOUNTER 2021-01-18 14:50 | Outpatient (CLI) | payer BC ==
[2021-01-18 20:16] LABS: CALCIUM 9.8 mg/dL (8.5-10.3); CREATININE 1.3 mg/dL (0.6-1.2); POTASSIUM 4.5 mmol/L (3.5-5.0)
[2021-01-18 20:30] LABS: ESTIMATED AVERAGE GLUCOSE 197 mg/dL (70-100); HEMOGLOBIN A1c% 8.5 % (4.27-6.07)
[2021-01-18 20:55] LABS: MICROALBUMIN,URINE < 0.2 mg/dL (0-300.0)
== END 2021-01-18 14:51 | disposition home or self-care (01) ==
LOC: LAB.S 14:50
PROVIDERS: ATTEND Physician Assistant
DX: I10 Essential (primary) hypertension (principal); E78.5 Hyperlipidemia, unspecified; E11.9 Type 2 diabetes mellitus without complications
CPT/HCPCS: 36415; 80048; 82043; 82570; 83036

== ENCOUNTER 2021-08-17 09:47 | Outpatient (CLI) | payer BC ==
[2021-08-17 15:32] LABS: BASOPHILS # (AUTO) 0.1 10^3/uL (0.0-0.1); BASOPHILS % (AUTO) 0.8 %; EOSINOPHILS # (AUTO) 0.2 10^3/uL (0.0-0.7); EOSINOPHILS % (AUTO) 3.1 %; HGB - HEMOGLOBIN 17.6 g/dL (14.0-18.0); LYMPHOCYTES # (AUTO) 2.8 10^3/uL (1.5-3.5); LYMPHOCYTES % (AUTO) 43.7 %; MEAN CORPUSCULAR HEMOGLOBIN 30.5 pg (27.0-31.0); MEAN CORPUSCULAR HGB CONC 33.2 g/dL (32.0-36.0); MEAN CORPUSCULAR VOLUME 91.9 fL (80.0-94.0); MEAN PLATELET VOLUME 10.8 fL (7.4-11.4); MONOCYTES # (AUTO) 0.5 10^3/uL (0.0-1.0); MONOCYTES % (AUTO) 7.6 %; NEUTROPHILS # (AUTO) 2.9 10^3/uL (1.5-6.6); NEUTROPHILS % (AUTO) 44.6 %; PLT - PLATELET COUNT 169 10^3/uL (130-450); RED BLOOD COUNT 5.77 10^6/uL (4.70-6.10); RED CELL DISTRIBUTION WIDTH 13.4 % (12.0-15.0); WHITE BLOOD COUNT 6.4 x10^3/uL (4.8-10.8)
[2021-08-17 16:06] LABS: ALBUMIN 4.7 g/dL (3.2-5.5); ALBUMIN/GLOBULIN RATIO 1.7 (1.0-2.2); ALKALINE PHOSPHATASE 85 IU/L (42-121); ALT ALANINE AMINOTRANSFERASE 47 IU/L (10-60); AST ASPARTATE AMINOTRANSFERASE 24 IU/L (10-42); BILIRUBIN,TOTAL 2.2 mg/dL (0.2-1.0); BUN - BLOOD UREA NITROGEN 21 mg/dL (6-20); CALCIUM 9.7 mg/dL (8.5-10.3); CARBON DIOXIDE - CO2 25 mmol/L (21-32); CHLORIDE 101 mmol/L (101-111); CHOL/HDL RATIO 5.5 (<5.0); CHOLESTEROL 172 mg/dL; GFR - MDRD 78 (>89); GLUCOSE 203 mg/dL (70-100); HDL CHOLESTEROL 31 mg/dL; LDL CHOLESTEROL,CALCULATED 65 mg/dL; LDL/HDL RATIO 2.1 (<3.6); POTASSIUM 4.2 mmol/L (3.5-5.0); SODIUM 137 mmol/L (135-145); TOTAL PROTEIN 7.4 g/dL (6.7-8.2); TRIGLYCERIDES 379 mg/dL; VLDL CHOLESTEROL 76 mg/dL
[2021-08-17 21:17] LABS: ESTIMATED AVERAGE GLUCOSE 226 mg/dL (70-100); HEMOGLOBIN A1c% 9.5 % (4.27-6.07)
== END 2021-08-17 09:48 | disposition home or self-care (01) ==
LOC: LAB.S 09:47
PROVIDERS: ATTEND Internal Medicine
DX: E11.9 Type 2 diabetes mellitus without complications (principal); Z12.5 Encounter for screening for malignant neoplasm of prostate
CPT/HCPCS: 36415; 80053; 80061; 83036; 83721; 84153; 85025

== ENCOUNTER 2022-04-07 09:20 | Outpatient (CLI) | payer BC ==
[2022-04-07 14:46] LABS: ALBUMIN 4.4 g/dL (3.2-5.5); ALBUMIN/GLOBULIN RATIO 1.5 (1.0-2.2); BILIRUBIN,TOTAL 1.6 mg/dL (0.2-1.0); CALCIUM 9.7 mg/dL (8.5-10.3); CREATININE 0.9 mg/dL (0.6-1.2); POTASSIUM 4.2 mmol/L (3.5-5.0); TOTAL PROTEIN 7.3 g/dL (6.7-8.2)
[2022-04-07 21:37] LABS: ESTIMATED AVERAGE GLUCOSE 263 mg/dL (70-100); HEMOGLOBIN A1c% 10.8 % (4.27-6.07)
== END 2022-04-07 09:21 | disposition home or self-care (01) ==
LOC: LAB.S 09:20
PROVIDERS: ATTEND Registered Nurse
DX: E11.9 Type 2 diabetes mellitus without complications (principal)
CPT/HCPCS: 36415; 80053; 83036

== ENCOUNTER 2022-09-06 11:29 | Outpatient (CLI) | payer BC ==
--- NOTE | 2022-09-07 00:12 | XRAY Report ---
PROCEDURE: Tib/Fib RT INDICATIONS: RIGHT LOWER LEG CONTUSION TECHNIQUE: 2 views of the tibia and fibula were acquired. COMPARISON: None FINDINGS: Bones: No fractures or dislocations. No suspicious bony lesions. Soft tissues: No suspicious soft tissue calcifications or masses. IMPRESSION: No acute abnormality of the right tibia and fibula are identified. Reviewed by: Brown Anderson on 09/06/2022 11:10 PM [facility] Approved by: Brown Anderson on 09/06/2022 11:10 PM [facility] Station ID: [id number]
== END 2022-09-06 11:30 | disposition home or self-care (01) ==
LOC: DI.S 11:29
PROVIDERS: ATTEND Emergency Medicine
DX: S80.11XA Contusion of right lower leg, initial encounter (principal)

== ENCOUNTER 2022-11-03 10:44 | Outpatient (CLI) | payer BC ==
[2022-11-03 14:53] LABS: BASOPHILS % (AUTO) 0.6 %; EOSINOPHILS # (AUTO) 0.2 10^3/uL (0.0-0.7); EOSINOPHILS % (AUTO) 3.5 %; HCT - HEMATOCRIT 49.8 % (42.0-52.0); HGB - HEMOGLOBIN 16.4 g/dL (14.0-18.0); LYMPHOCYTES # (AUTO) 2.1 10^3/uL (1.5-3.5); LYMPHOCYTES % (AUTO) 39.5 %; MEAN CORPUSCULAR HEMOGLOBIN 30.2 pg (27.0-31.0); MEAN CORPUSCULAR HGB CONC 32.9 g/dL (32.0-36.0); MEAN CORPUSCULAR VOLUME 91.7 fL (80.0-94.0); MEAN PLATELET VOLUME 10.5 fL (7.4-11.4); MONOCYTES # (AUTO) 0.4 10^3/uL (0.0-1.0); MONOCYTES % (AUTO) 7.7 %; NEUTROPHILS # (AUTO) 2.6 10^3/uL (1.5-6.6); NEUTROPHILS % (AUTO) 48.5 %; PLT - PLATELET COUNT 153 10^3/uL (130-450); RED BLOOD COUNT 5.43 10^6/uL (4.70-6.10); RED CELL DISTRIBUTION WIDTH 12.9 % (12.0-15.0); WHITE BLOOD COUNT 5.4 x10^3/uL (4.8-10.8)
[2022-11-03 15:55] LABS: ALBUMIN 4.1 g/dL (3.2-5.5); ALBUMIN/GLOBULIN RATIO 1.4 (1.0-2.2); ALKALINE PHOSPHATASE 79 IU/L (42-121); ALT ALANINE AMINOTRANSFERASE 50 IU/L (10-60); AST ASPARTATE AMINOTRANSFERASE 28 IU/L (10-42); BILIRUBIN,TOTAL 1.8 mg/dL (0.2-1.0); BUN - BLOOD UREA NITROGEN 13 mg/dL (6-20); CALCIUM 8.8 mg/dL (8.5-10.3); CARBON DIOXIDE - CO2 24 mmol/L (21-32); CHLORIDE 104 mmol/L (101-111); CHOL/HDL RATIO 5.6 (<5.0); CHOLESTEROL 168 mg/dL; CREATININE 0.8 mg/dL (0.6-1.2); GFR - MDRD 100 (>89); GLUCOSE 174 mg/dL (70-100); HDL CHOLESTEROL 30 mg/dL; LDL CHOLESTEROL,CALCULATED 101 mg/dL; LDL/HDL RATIO 3.4 (<3.6); POTASSIUM 3.8 mmol/L (3.5-5.0); SODIUM 136 mmol/L (135-145); TRIGLYCERIDES 185 mg/dL; VLDL CHOLESTEROL 37 mg/dL
[2022-11-03 15:59] LABS: CREATININE,URINE 104.9 mg/dL; MICROALBUM/CREATININE RATIO,UR 3.8 ug/mg (<30.0); MICROALBUMIN,URINE 0.4 mg/dL (0-300.0)
[2022-11-03 20:55] LABS: ESTIMATED AVERAGE GLUCOSE 235 mg/dL (70-100); HEMOGLOBIN A1c% 9.8 % (4.27-6.07)
== END 2022-11-03 10:45 | disposition home or self-care (01) ==
LOC: LAB.S 10:44
PROVIDERS: ATTEND Registered Nurse
DX: E78.5 Hyperlipidemia, unspecified (principal); Z79.899 Other long term (current) drug therapy; E11.9 Type 2 diabetes mellitus without complications; Z12.5 Encounter for screening for malignant neoplasm of prostate
CPT/HCPCS: 36415; 80053; 80061; 82043; 82570; 83036; 83721; 84153; 85025

== ENCOUNTER 2022-11-05 09:49 | Outpatient (CLI) | payer BC ==
--- NOTE | 2022-11-05 11:17 | XRAY Report ---
PROCEDURE: Forearm RT INDICATIONS: NUMBNESS AND TINGLING IN RIGHT ARM TECHNIQUE: 2 views of the forearm were acquired. COMPARISON: None FINDINGS: Bones: No fractures or dislocations. No suspicious bony lesions. Soft tissues: No suspicious soft tissue calcifications or masses. IMPRESSION: No acute bony or soft tissue abnormality. Reviewed by: Lubna Matamoros MD on 11/05/2022 11:15 AM PDT Approved by: Lubna Matamoros MD on 11/05/2022 11:15 AM PDT Station ID: [id number]
== END 2022-11-05 09:50 | disposition home or self-care (01) ==
LOC: DI.S 09:49
PROVIDERS: ATTEND Registered Nurse
DX: R20.2 Paresthesia of skin (principal)

== ENCOUNTER 2023-08-08 14:37 | Outpatient (CLI) | payer BC ==
[2023-08-08 14:56] LABS: BASOPHILS % (AUTO) 0.7 %; EOSINOPHILS # (AUTO) 0.2 10^3/uL (0.0-0.7); EOSINOPHILS % (AUTO) 4.2 %; HCT - HEMATOCRIT 50.6 % (42.0-52.0); HGB - HEMOGLOBIN 16.4 g/dL (14.0-18.0); LYMPHOCYTES % (AUTO) 36.9 %; MEAN CORPUSCULAR HEMOGLOBIN 30.2 pg (27.0-31.0); MEAN CORPUSCULAR HGB CONC 32.4 g/dL (32.0-36.0); MEAN CORPUSCULAR VOLUME 93.2 fL (80.0-94.0); MONOCYTES # (AUTO) 0.4 10^3/uL (0.0-1.0); MONOCYTES % (AUTO) 7.4 %; NEUTROPHILS # (AUTO) 2.8 10^3/uL (1.5-6.6); NEUTROPHILS % (AUTO) 50.6 %; PLT - PLATELET COUNT 141 10^3/uL (130-450); RED BLOOD COUNT 5.43 10^6/uL (4.70-6.10); RED CELL DISTRIBUTION WIDTH 13.2 % (12.0-15.0); WHITE BLOOD COUNT 5.4 x10^3/uL (4.8-10.8)
[2023-08-08 15:23] LABS: CREATININE,URINE 111.5 mg/dL
[2023-08-08 15:23] LABS: ALBUMIN 4.5 g/dL (3.2-5.5); ALKALINE PHOSPHATASE 68 IU/L (42-121); ALT ALANINE AMINOTRANSFERASE 37 IU/L (10-60); AST ASPARTATE AMINOTRANSFERASE 26 IU/L (10-42); BILIRUBIN,TOTAL 1.6 mg/dL (0.2-1.0); BUN - BLOOD UREA NITROGEN 18 mg/dL (6-20); CALCIUM 9.7 mg/dL (8.5-10.3); CARBON DIOXIDE - CO2 29 mmol/L (21-32); CHLORIDE 101 mmol/L (101-111); CHOL/HDL RATIO 3.7 (<5.0); CHOLESTEROL 137 mg/dL; GFR - MDRD 77 (>89); GLUCOSE 106 mg/dL (74-104); HDL CHOLESTEROL 37 mg/dL; LDL CHOLESTEROL,CALCULATED 72 mg/dL; LDL/HDL RATIO 1.9 (<3.6); POTASSIUM 3.9 mmol/L (3.5-4.5); SODIUM 138 mmol/L (135-145); TOTAL PROTEIN 6.8 g/dL (6.4-8.9); TRIGLYCERIDES 139 mg/dL (48-352); VLDL CHOLESTEROL 28 mg/dL
[2023-08-08 15:27] LABS: THYROID STIMULATING HORMONE 1.86 uIU/mL (0.34-5.60)
[2023-08-08 15:48] LABS: MICROALBUMIN,URINE < 0.7 mg/dL
[2023-08-08 20:59] LABS: ESTIMATED AVERAGE GLUCOSE 146 mg/dL (70-100); HEMOGLOBIN A1c% 6.7 % (4.27-6.07)
== END 2023-08-08 14:38 | disposition home or self-care (01) ==
LOC: LAB 14:37
PROVIDERS: ATTEND Registered Nurse
DX: E11.9 Type 2 diabetes mellitus without complications (principal); R53.83 Other fatigue; Z13.220 Encounter for screening for lipoid disorders; Z13.29 Encounter for screening for other suspected endocrine disorder; Z13.0 Encounter for screening for diseases of the blood and blood-forming organs and certain disorders involving the immune mechanism
CPT/HCPCS: 36415; 80053; 80061; 82043; 82570; 83036; 83721; 84403; 84443; 85025

== ENCOUNTER 2023-08-18 09:02 | Outpatient (CLI) | payer BC ==
--- NOTE | 2023-08-18 09:55 | Sleep Patient Instructions ---
Sleep Center Visit Summary - Patient Visit Information Reason for Visit: Initial consultation to establish care - Patient Instructions Additional Instructions: You will be completing a sleep study, either an in-lab polysomnography (PSG) or home sleep study (HST). You will follow-up in the sleep care office after the sleep study is completed to hear the results and talk about therapy, if needed. You will be called by our office staff to schedule this appointment, but you may contact us with any questions. - Clinic Information Contact: [facility] [address] [place] [id number] [email or web address] T: [phone]
--- NOTE | 2023-08-18 10:01 | SLEEP CARE CONSULTATION ---
Information from patient questionnaire entered by Rosalino Faulkner. I have reviewed and concur with the information entered by Rosalino Faulkner. This document represents the service I personally performed and the decisions made by me, Denise Becerra ARNP. History of Present Illness Service Date and Time: 08/18/2023901 Reason for Visit: New patient Chief Complaint: reports: Snoring, Observed pauses in breathing, Other (Update supplies) Date of Onset: [id number] Usual bedtime: 10 PM Time it takes to fall asleep: 10 minutes Snores at night: Yes Observed to quit breathing while asleep: Yes (girlfriend hearing gasping/choking sounds too) Sleeps alone due to snoring: Yes Number of times waking at night: 1 time Reasons for waking at night: reports: Bathroom. denies: Choking, Gasping for air Toss, Turn, or Twitch while sleeping: Yes Recalls having dreams: No Usually gets out of bed at: 3:30 - 5:30 PM Feels refreshed in the morning: Yes (Yes and no) Morning headache: No Sleepy or fatigued during the day: No Ever fallen asleep while driving: No Takes day naps: No Dreams during day naps: No Prior sleep studies: Yes Year and Where: [address] [facility] Type of Sleep Study: Polysomnography Additional HPI information: SERGO GUNN was previously diagnosed to have very severe, AHI 61.5, obstructive sleep apnea-hypopnea syndrome in sleep study dated 11/08/2016 seen in his chart and comes in today to re-establish care for CPAP therapy. He has not been using his CPAP since 2019 consistently. - Parasomnia Symptoms Ever been unable to move upon waking from sleep: No Walks in sleep: No Talks in sleep: No Ever acted out dreams in sleep: No Ever felt weak in the knees when startled or emotional: No Bothered by creepy, crawly, restless sensations in legs: No Problems with memory or concentration: No CPAP Compliance Data - Data Reviewed with Patient Compliance rate %: 0 (has not used consistently since 2019) Current pressure setting (cmH2O): 12 Compliance data discussion: He has a Dreamstation set up dated 12/15/2016 that is on the recall. He has not been using it since about 2019. He used to use [facility] for supplies. He was using a full face mask. Subjective Missed days of use due to: reports: other (just stopped using during Covid pandemic) Current pressure setting perceived as: comfortable On therapy, patient: denies: drowsiness while driving Initial Sylvia Sleepiness Scale score: 10 (in 2006) Current Sylvia Sleepiness Scale score: 4 (in 2023) Past Medical History Past Medical History: reports: Hypertension, Diabetes, Other (TIA 07/2017) Social History The patient's occupation is retired. Patient is and lives in [place]. Have you smoked in the past 12 months: No Cigarettes per day (20/pack): 1 Years of smokin Quit date: 2009 Smoking Pack Years: 0 Alcohol use: Yes Alcohol amount and frequency: 1 or 2, couple of times per week Caffeine use: Yes Caffeine amount and frequency: 2-3 daily Family History Family history of sleep disordered breathing: No Allergies and Home Medications Known drug allergies: Yes (metformin) Drug allergies reviewed: Yes Home medication list reviewed: Yes (as listed) Allergy and home medication list: Allergies metformin Adverse Reaction (Verified 08/13/23 16:50) Unknown Home Medications Medication Instructions Recorded Confirmed Last Taken Type Atorvastatin Calcium 80 mg PO QPM 02/21/16 08/18/23 10/01/20 History Lisinopril 40 mg PO DAILY 02/21/16 08/18/23 10/01/20 12:00 History Clopidogrel [Plavix] 75 mg ORAL DAILY 01/18/18 08/18/23 10/01/20 History Ozempic See Rx Instructions .ROUTE .COMPLEX 08/18/23 08/18/23 Unknown History Review of Systems Weight loss over past 5 years: 24 in the last year Cardiovascular: reports: high blood pressure Respiratory: denies: shortness of breath Gastrointestinal: denies: heartburn Neurological: denies: headaches Psychiatric: denies: anxiety, depression Ear/Nose/Throat: reports: nose bleeds, wisdom teeth removed (Lower) Physical Exam Vital signs obtained and entered by: Denise Etienne NP Blood Pressure: 128/76 Cuff size: long (right) Heart Rate: 63 O2 Saturation: 98 Height: 5 ft 10 in Weight: 232 lb 3.2 oz Weight change since last visit: 24 lb loss Body Mass Index: 33.3 BMI Classification: Obese Neck circumference: 19 Heart: regular rate and rhythm Lungs: clear bilaterally Impression and Plan 1. Obstructive Sleep Apnea-Hypopnea Syndrome, very severe, with poor treatment compliance and unknown apnea control. He states he is not sure exactly why but he just stopped using his CPAP. His CPAP was set at 12 cm H2O and was not uncomfortable but he ran out of supplies. He has also lost about 24 pounds since his last visit. I think we should reverify diagnosis and severity with a new sleep study. And then we can set him up with a new machine since his DreamStation is over 5 years old and on the recall. He voiced understanding and agreement with this plan of care. We will follow-up with him after the sleep study. Patient's apnea severity and rationale for treatment to reduce apnea, improve sleep quality and reduce cardiovascular and cerebrovascular events was reviewed. I also reviewed the benefit of consistent device use of CPAP for hypertension and diabetes. 2. Obesity, unspecified. Currently patients BMI is 33.3. He has lost about 24 pounds in the last year. Obesity increases the risk of apnea, CPAP pressure requirements and overall health risks especially cardiovascular and diabetes. Thus patient is advised to continue to try to lose weight. * Schedule polysomnography +- manual CPAP titration study and return in 1-2 weeks after the study to discuss result and initiate therapy. * Avoid long distance driving or driving when feeling sleepy. * Avoid alcohol, sedative and muscle relaxant around bedtime. * Attempt to lose weight. * Review instructions provided by trained office staff on how to prepare for the sleep study. * Return for follow-up after sleep study completed. Counseling Topics: Weight loss health impact Follow up with Sleep Care in: other (after sleep study) Plan: PSG/HST Visit Type: In Office Time Spent with Patient (minutes): 32 Provider Statement: I spent 100% of the Face to Face Visit with the patient with greater than 50% spent counseling the patient and coordination of care.
[2023-08-18 10:06] VITALS: BP 128/76; O2SAT 98
== END 2023-08-18 09:03 | disposition home or self-care (01) ==
LOC: SC 09:02
PROVIDERS: ATTEND Nurse Practitioner Family
DX: G47.33 Obstructive sleep apnea (adult) (pediatric) (principal); I10 Essential (primary) hypertension; E11.9 Type 2 diabetes mellitus without complications; Z79.84 Long term (current) use of oral hypoglycemic drugs; Z87.891 Personal history of nicotine dependence; E66.9 Obesity, unspecified; Z68.33 Body mass index [BMI] 33.0-33.9, adult
CPT/HCPCS: 99203; 99212

== ENCOUNTER 2023-08-20 07:00 | Outpatient (CLI) | payer BC ==
--- NOTE | 2023-08-20 22:14 | XRAY Report ---
PROCEDURE: Foot 1-2V LT INDICATIONS: LEFT FOOT SPRAIN TECHNIQUE: 2 views of the foot were acquired. COMPARISON: None. FINDINGS: Bones: No fractures or dislocations. No suspicious bony lesions. Mild osteoarthritic changes in ank le and foot. Calcaneal spurring. Soft tissues: No suspicious soft tissue calcifications or masses. IMPRESSION: 1. No acute bony abnormality. 2. Mild osteoarthritis. 3. Calcaneal spurring. Reviewed by: Denis Trevino MD on 08/20/2023 10:12 PM [facility] Approved by: Denis Trevino MD on 08/20/2023 10:12 PM [facility] Station ID: [id number]
== END 2023-08-20 23:59 | disposition home or self-care (01) ==
LOC: DI.S 07:00
PROVIDERS: ATTEND Nurse Practitioner
DX: S93.692A Other sprain of left foot, initial encounter (principal); M19.072 Primary osteoarthritis, left ankle and foot; M77.32 Calcaneal spur, left foot

== ENCOUNTER 2023-10-01 08:02 | Outpatient (CLI) | payer BC | END 2023-10-01 08:03 | disposition home or self-care (01) | LOC: SC 08:02 | PROVIDERS: ATTEND Nurse Practitioner Family | DX: G47.33 Obstructive sleep apnea (adult) (pediatric) (principal); R09.02 Hypoxemia; E11.9 Type 2 diabetes mellitus without complications; I10 Essential (primary) hypertension | CPT/HCPCS: 95806 ==

== ENCOUNTER 2023-11-03 13:06 | Outpatient (CLI) | payer BC ==
--- NOTE | 2023-11-03 13:28 | Sleep Patient Instructions ---
Sleep Center Visit Summary - Patient Visit Information Reason for Visit: Sleep study follow-up - Patient Instructions Additional Instructions: You are being re-started on CPAP therapy with pressure setting at 12 cmH2O. You will need to call the sleep care office to set up your follow up once you have your CPAP machine to check compliance and response to therapy at that time. You may call the office with any concerns about pressure feeling too low or too much for adjustment, if needed. You should contact DME supplier for any questions or concerns about mask or equipment. Please call office to schedule a follow up appointment in the sleep care office one month after obtaining new device. - Clinic Information Contact: [facility] [address] [place] [address] [email or web address] T: [phone]
--- NOTE | 2023-11-03 13:32 | SLEEP CARE CONSULTATION ---
Information from patient questionnaire entered by Olivia Macias. I have reviewed and concur with the information entered by Olivia Macias. This document represents the service I personally performed and the decisions made by , Denise Becerra ARNP. History of Present Illness Service Date and Time: 11/03/2023 1306 Initial [place] Sleepiness Scale score: 10 (in 2006) Current [place] Sleepiness Scale score: 7 Additional HPI information: SERGO GUNN returns for follow up and results of the recently performed home sleep study. The sleep study showed severe obstructive sleep apnea with an average AHI of 34.7 and helen oxygen saturation of 65%. I explained the pathophysiology behind obstructive sleep apnea. We then spent quite a bit of time discussing different treatment options. For mild obstructive sleep apnea, surgery and oral appliance are alternatives to nasal CPAP therapy but in moderate or severe cases, nasal CPAP is the most effective and reliable treatment. I reviewed the impact of weight changes on sleep apnea and strongly recommended losing weight. After some discussion, the patient opted to go with the nasal CPAP therapy. Nasal autoCPAP set at 12 cmH20 will be ordered with rationale explained. A man ual titration study will be ordered if unable to find optimal pressure with office adjustments. Patient counseled not drink alcohol less than 4 hours before bedtime as it can increase snoring and apnea. Patient was cautioned about risks of drowsy driving until sleepiness symptoms resolve. Patient denies drowsy driving. Sleep Study - Results Type of Sleep Study: Home sleep study (COMPLETED 10/01/23) Prior sleep studies: Yes Year and Where: 2006 and 2016 [facility] Polysomnography/Home Sleep Study results: Physician Impression: The quality of the study is good. The length of the study is adequate (> 240 minutes). Please also see the tabulated and graphic data. 1. Obstructive Sleep Apnea-Hypopnea (ICD-10 G47.33), severe, with an AHI of 34.7/hr and helen SaO2 of 65%. During the study, the patient had 188 apneas (188 obstructive, 0 c entral, 0 mixed) and 114 hypopneas. The longest episode lasted 96.0 seconds. The respiratory events occurred slightly more frequently during supine sleep (supine AHI was 47.6 and non-supine, 30.33). 2. Hypoxemia (ICD-10 R09.02), moderate, with the lowest oxygen saturation of 65 % and 64.7 minutes with SaO2 under 90%. Baseline oxygen saturation was normal (Average oxygen saturation was 92%). Allergies and Home Medications Known drug allergies: Yes (as listed) Drug allergies reviewed: Yes Home medication list reviewed: Yes (no changes) Allergy and home medication list: Allergies metformin Adverse Reaction (Verified 11/02/23 10:18) Unknown Review of Systems Review of systems same as previous: No (chest mole removed) Physical Exam Vital signs obtained and entered by: DENISE CEE-Chiara Blood Pressure: 137/83 Cuff size: long (right) Heart Rate: 69 O2 Saturation: 98 Height: 5 ft 10 in Weight: 255 lb 6.4 oz Body Mass Index: 36.6 BMI Classification: Obese Impression and Plan 1. Obstructive Sleep Apnea-Hypopnea Syndrome, severe, with lowest oxygen saturation of 65%. Positive pressure therapy could benefit hypertension and diabetes. As mentioned above, the patient will be re-started on nasal autoCPAP therapy with pressure set at 12 cmH2O since this last pressure appeared to be adequate when he was last using his CPAP. Compliance guidelines also reviewed. A copy of compliance guidelines will be given for reference at check out. He will call if the pressure is uncomfortable or need further adjustment of pressure. We will also set him up on new DME to obtain new machine and supplies. He will call to set up compliance followup. 2. Hypoxemia, moderate, with a helen oxygen saturation of 65% and 64.7 minutes spent under 90%. The baseline oxygen saturation was normal with an average oxygen saturation of 92%. 3. Obesity, unspecified. Currently patients BMI is 36.6. Obesity increases the risk of apnea, CPAP pressure requirements and overall health risks especially cardiovascular and diabetes. Thus patient is advised to lose weight. * Update machine: Nasal auto CPAP therapy, pressure at 12 cm H2O. * DME Transfer * Update supplies * Attempt to lose weight. * Avoid alcohol consumption near bedtime. * Avoid supine sleep until using CPAP. * The patient is again cautioned about driving until sleepiness completely resolves. * Return one month after CPAP obtained. I will assess response to therapy and compliance at that time. Counseling Topics: Weight loss health impact Prescriptions: Auto CPAP, Device supplies Plan: Update machine and compliance follow up Visit Type: In Office Time Spent with Patient (minutes): 21 Provider Statement: I spent 100% of the Face to Face Visit with the patient with greater than 50% spent counseling the patient and coordination of care.
[2023-11-03 13:38] VITALS: BP 137/83; O2SAT 98
== END 2023-11-03 13:07 | disposition home or self-care (01) ==
LOC: SC 13:06
PROVIDERS: ATTEND Nurse Practitioner Family
DX: G47.33 Obstructive sleep apnea (adult) (pediatric) (principal); R09.02 Hypoxemia; E66.9 Obesity, unspecified; Z68.36 Body mass index [BMI] 36.0-36.9, adult
CPT/HCPCS: 99212; 99213